=== PATIENT | female | born 1995 | race Caucasian/White ===

== ENCOUNTER 2017-02-14 17:02 | Emergency (ER) | payer SELFPAY ==
[2017-02-14 17:24] VITALS: BP 114/64
--- NOTE | 2017-02-14 17:43 | UC ---
Truncal Trauma HPI - HPI Summary HPI Summary: Kicked by cow in R upper breast/anterior shoulder 3 days ago. Area is still painful, tabby with cough, deep breath, and movement of R arm. Denies SOB or bloody sputum. Taking ibuprofen 600mg TID with some effect. - History Of Current Complaint Hx Obtained From: Patient Hx Last Menstrual Period: iud ?: No Onset/Duration: Sudden Onset Onset Of Pain: Immediate Severity Initially: Moderate Severity Currently: Moderate Mechanism Of Injury: Blunt Trauma, Direct Blow Aggravating Factor(s): Movement, Deep Breathing, Cough Alleviating factor(s): Rest, OTC Medication Associated Signs And Symptoms: Positive: Chest Pain. Negative: Hematuria, Abdominal Pain, Fever, Nausea, Vomiting <Philomena Sorto - Last Filed: 02/14/17 18:29> <Virginie Contreras - Last Filed: 02/14/17 19:25> - History Of Current Complaint Chief Complaint: UCGeneralIllness Stated Complaint: KICKED BY COW-CHEST AREA Time Seen by Provider: 02/14/17 17:28 - Allergies/Home Medications Allergies/Adverse Reactions: Allergies Allergy/AdvReac Type Severity Reaction Status Date / Time No Known Allergies Allergy Verified 02/14/17 17:24 PMH/Surg Hx/FS Hx/Imm Hx Previously Healthy: Yes - Family History Known Family History: Negative: Blood Disorder - Social History Occupation: Employed Full-time - on farm Alcohol Use: None Substance Use Type: None Smoking Status (MU): Never Smoked Tobacco <Philomena Sorto - Last Filed: 02/14/17 18:29> Review of Systems Constitutional: Negative Skin: Negative Eyes: Negative ENT: Negative Respiratory: Negative Cardiovascular: Negative Gastrointestinal: Negative Genitourinary: Negative Motor: Negative Neurovascular: Negative Musculoskeletal: Arthralgia - R chest Neurological: Negative Psychological: Negative Is Patient Immunocompromised?: No All Other Systems Reviewed And Are Negative: Yes <Philomena Sorto - Last Filed: 02/14/17 18:29> Physical Exam Triage Information Reviewed: Yes Appearance: Well-Nourished, Pain Distress - with movement Vital Signs: Initial Vital Signs Temp 97.4 F 02/14/17 17:19 Pulse 67 02/14/17 17:19 Resp 18 02/14/17 17:19 BP 114/64 02/14/17 17:19 Pulse Ox 100 02/14/17 17:19 Vital Signs Reviewed: Yes Eye Exam: Normal Eyes: Positive: Conjunctiva Clear ENT Exam: Normal ENT: Positive: Normal ENT inspection, Hearing grossly normal, Pharynx normal, TMs normal Dental Exam: Normal Neck exam: Normal Neck: Positive: Supple Respiratory Exam: Normal, Other - no unusual sounds over injured area of chest Respiratory: Positive: Chest non-tender, Lungs clear, Normal breath sounds, No respiratory distress, No accessory muscle use Cardiovascular Exam: Normal Cardiovascular: Positive: RRR, No Murmur Musculoskeletal Exam: Other - tender R upper chest, pain with indirect stress Musculoskeletal: Positive: Strength Intact, ROM Intact Neurological Exam: Normal Neurological: Positive: Alert Psychological Exam: Normal Skin Exam: Normal <Philomena Sorto - Last Filed: 02/14/17 18:29> Vital Signs: Initial Vital Signs Temp 97.4 F 02/14/17 17:19 Pulse 67 02/14/17 17:19 Resp 18 02/14/17 17:19 BP 114/64 02/14/17 17:19 Pulse Ox 100 02/14/17 17:19 <Virginie Contreras - Last Filed: 02/14/17 19:25> Truncal Trauma Course/Dx - Differential Dx/Diagnosis Provider Diagnoses: R chest contusion <Philomena Sorto - Last Filed: 02/14/17 18:29> Discharge <Philomena Sorto - Last Filed: 02/14/17 18:29> <Virginie Contreras - Last Filed: 02/14/17 19:25> - Discharge Plan Condition: Stable Disposition: HOME Prescriptions: Indomethacin CAP* [Indocin CAP*] 50 mg PO TID PRN #30 cap PRN Reason: pain Patient Education Materials: Contusion in Adults (ED) Print Language: BURKINAN Forms: *Work Release Referrals: No Primary Care Phys,NOPCP [Primary Care Provider] - Additional Instructions: Take either ibuprofen or the medicine I prescribed to you -- do not take them together. If you are not improving within 1 week, please come back. Attestation Statement User Type: Provider - I was available for consult. This patient was seen by the MIC[facility]. The patient was not presented to, seen by, or examined by me. -Ernesto <Virginie Contreras - Last Filed: 02/14/17 19:25>
--- NOTE | 2017-02-14 18:16 | RAD ---
Indication: Right chest injury. 4 views of the right RIBS including dual energy PA views of the chest demonstrates no definite fracture. No pneumothorax is noted. No mediastinal shift is noted. Heart is normal size and configuration. IMPRESSION: No definite rib fractures identified although anterior ribs are more difficult to visualized on series. No pneumothorax is noted.
== END 2017-02-14 18:38 | disposition home or self-care (01) ==
LOC: UCEAST 17:02
DX: S20.211A Contusion of right front wall of thorax, initial encounter (principal); W55.22XA Struck by cow, initial encounter
CPT/HCPCS: 99201; G0463